=== PATIENT | male | born 1945 | race Caucasian/White ===

== ENCOUNTER 2017-02-27 15:05 | Inpatient (IN) | payer MEDICARE, MEDICAID ==
[~2017-02-27] VITALS: Ht 182.9 cm; Wt 75.4 kg
[2017-02-27] MEDS ORDERED: SODIUM CHLORIDE FLUSH 10ML SYR IVF PRN (15:30)
[2017-02-27] MEDS ORDERED: ONDANSETRON ODT 4 MG PO PRN (16:00)
[2017-02-27] MEDS ORDERED: MAGNESIUM SULFATE PMX 2GM/50ML 50 ML IV ONE (16:00)
[2017-02-27] MEDS ORDERED: POTASSIUM CHLORIDE 20 MEQ TAB.ER.PRT PO ONE (16:00)
[2017-02-27] MEDS ORDERED: DOCUSATE 100 MG CAPSULE PO PRN (16:00)
[2017-02-27] MEDS ORDERED: POLYETHYLENE GLYCOL 17 GM PACKET PO PRN (16:00)
[2017-02-27] MEDS ORDERED: ONDANSETRON 2MG/ML, 2ML IVP PRN (16:00)
[2017-02-27] MEDS ORDERED: BISACODYL 10 MG SUPP PR PRN (16:00)
[2017-02-27] MEDS ORDERED: ACETAMINOPHEN 325 MG TABLET PO PRN (16:00)
[2017-02-27] MEDS ORDERED: LABETALOL 5MG/ML, 20ML IV PRN (16:00)
[2017-02-27 16:33] LABS: IS PT STATUS REG ER OR PRE ER? NO
[2017-02-27 16:34] VITALS: BP 136/79
[2017-02-27] MEDS: POTASSIUM CHLORIDE 10 MEQ in SODIUM CHLORIDE 0.9% 1,000 ML IV SCH (17:35)
[2017-02-27] MEDS: HEPARIN 5,000 UNITS/ML, 1ML SQ SCH (17:41)
[2017-02-27 20:10] VITALS: BP 110/70
[2017-02-27 22:33] LABS: IS PT STATUS REG ER OR PRE ER? NO
[2017-02-28 02:22] VITALS: BP 105/67
[2017-02-28] MEDS ORDERED: ASPIRIN 325 MG TABLET EC PO SCH (06:00)
[2017-02-28] MEDS: POTASSIUM CHLORIDE 10 MEQ in SODIUM CHLORIDE 0.9% 1,000 ML IV SCH (06:22)
[2017-02-28 06:30] LABS: ASPARTATE AMINO TRANSFERASE 17 U/L (15-37); BLOOD UREA NITROGEN 20 mg/dL (7-18)
[2017-02-28 06:50] VITALS: BP 128/75
[2017-02-28] MEDS: HEPARIN 5,000 UNITS/ML, 1ML SQ SCH ×3 (08:00→16:00)
[2017-02-28 13:20] VITALS: BP 120/64
[2017-02-28] MEDS ORDERED: ASPI-650 PO (16:44)
== END 2017-02-28 18:34 | disposition home or self-care (01) | DRG 68 ==
LOC: ED 15:20 → EDIP 15:22 → ED 15:30 → 4EST 16:19
PROVIDERS: ADMIT Internal Medicine; ATTEND Internal Medicine
DX: I65.23 Occlusion and stenosis of bilateral carotid arteries (principal); E87.6 Hypokalemia; G46.0 Middle cerebral artery syndrome; F17.200 Nicotine dependence, unspecified, uncomplicated; H54.62 Unqualified visual loss, left eye, normal vision right eye; E86.0 Dehydration; Z82.49 Family history of ischemic heart disease and other diseases of the circulatory system; Z88.0 Allergy status to penicillin; N18.2 Chronic kidney disease, stage 2 (mild)
CPT/HCPCS: 36415; 70551; 80053; 80061; 84439; 84443; 84484; 85025; 93306; 93880; 99285; J3480; J3475; J7030